=== PATIENT | male | born 1970 | race Two or more races ===

== ENCOUNTER 2019-02-07 11:16 | Emergency (ER) | payer MEDICAID, OTHER ==
[~2019-02-07] VITALS: Ht 170.2 cm; Wt 81.0 kg
[2019-02-07 11:33] VITALS: BP 129/92
[2019-02-07] MEDS ORDERED: FLUORESCEIN SODIUM 1MG/STRIP OP ONE (12:30)
[2019-02-07] MEDS ORDERED: TETRACAINE 0.5% OPHTH DROPS 4ML OP ONE (12:30)
== END 2019-02-07 13:21 | disposition home or self-care (01) ==
LOC: ER 11:52
DX: T15.81XA Foreign body in other and multiple parts of external eye, right eye, initial encounter (principal); X58.XXXA Exposure to other specified factors, initial encounter; Y93.89 Activity, other specified; Y92.89 Other specified places as the place of occurrence of the external cause; Y99.0 Civilian activity done for income or pay
CPT/HCPCS: 99283

== ENCOUNTER 2021-11-15 13:08 | Emergency (ER) | payer MEDICAID ==
[~2021-11-15] VITALS: Ht 170.2 cm; Wt 73.0 kg
[2021-11-15 13:59] VITALS: BP 143/96
[2021-11-16] MEDS ORDERED: IBUP-2029 MT (11:16)
[2021-11-16] MEDS ORDERED: HYDR-4001 MT (11:16)
== END 2021-11-15 15:09 | disposition left against medical advice (07) ==
LOC: ER 14:11
DX: Z53.21 Procedure and treatment not carried out due to patient leaving prior to being seen by health care provider (principal)

== ENCOUNTER 2021-11-15 20:01 | Emergency (ER) | payer MEDICAID, OTHER ==
[2021-11-16] MEDS ORDERED: IBUP-2029 MT (11:16)
[2021-11-16] MEDS ORDERED: HYDR-4001 MT (11:16)
== END 2021-11-15 23:27 | disposition left against medical advice (07) ==
LOC: ER 20:01
DX: Z53.21 Procedure and treatment not carried out due to patient leaving prior to being seen by health care provider (principal)

== ENCOUNTER 2021-11-16 04:59 | Emergency (ER) | payer OTHER ==
[~2021-11-16] VITALS: Ht 170.2 cm; Wt 72.6 kg
[2021-11-16] MEDS ORDERED: KETOROLAC 60MG/2ML VIAL IM ONE (08:30)
[2021-11-16 09:09] LABS: BASOPHILS % 0.8 % (0.0-2.0); EOSINOPHILS % 3.8 % (0.0-5.0); HEMATOCRIT. 51.4 % (42.0-52.0); HEMOGLOBIN. 17.4 g/dL (14.0-18.0); LYMPHOCYTES % 28.8 % (20.0-50.0); MEAN CORPUSCULAR VOLUME 82.7 fL (80.0-94.0); MEAN PLATELET VOLUME 7.8 fl (7.4-10.4); MONOCYTES % 10.8 % (2.0-8.0); NEUTROPHILS % 55.8 % (40.0-76.0); PLATELET 252 x1000/uL (130-400); RED BLOOD CELL COUNT 6.21 mill/uL (4.7-6.1); RED CELL DISTRIBUTION WIDTH 14.1 % (11.6-14.6)
[2021-11-16 09:15] LABS: CHLORIDE 105 mEq/L (98-107)
[2021-11-16 09:17] LABS: CLARITY URINE CLEAR (CLEAR); COLOR URINE YELLOW (YELLOW); KETONES URINE NEGATIVE (NEGATIVE); LEUKOCYTE ESTERASE URINE NEGATIVE (NEGATIVE); NITRITE URINE NEGATIVE (NEGATIVE); OCCULT BLOOD URINE NEGATIVE (NEGATIVE); PROTEIN URINE NEGATIVE (NEGATIVE); SPECIFIC GRAVITY URINE 1.028 (1.005-1.030)
[2021-11-16] MEDS ORDERED: HYDR-4001 MT (11:16)
[2021-11-16] MEDS ORDERED: IBUP-2029 MT (11:16)
[2021-11-16 11:55] VITALS: BP 148/92
== END 2021-11-16 11:57 | disposition home or self-care (01) ==
LOC: ER 04:59
DX: M54.42 Lumbago with sciatica, left side (principal); E11.65 Type 2 diabetes mellitus with hyperglycemia; I10 Essential (primary) hypertension; M51.37 Other intervertebral disc degeneration, lumbosacral region; E86.0 Dehydration; G47.09 Other insomnia
CPT/HCPCS: 36415; 72100; 73502; 80053; 81003; 82962; 85025; 96372; 99284; J1885

== ENCOUNTER 2021-11-17 14:34 | Emergency (ER) | payer OTHER ==
[~2021-11-17] VITALS: Ht 170.2 cm; Wt 73.0 kg
[~2021-11-17 14:34] MED LIST: HYDR-4001 MT; IBUP-2029 MT
[2021-11-17 14:56] VITALS: BP 143/96
== END 2021-11-17 18:10 | disposition left against medical advice (07) ==
LOC: ER 14:34
DX: M79.605 Pain in left leg (principal); Z53.21 Procedure and treatment not carried out due to patient leaving prior to being seen by health care provider
CPT/HCPCS: 99281

== ENCOUNTER 2023-02-03 04:14 | Emergency (ER) | payer OTHER ==
[~2023-02-03] VITALS: Ht 175.3 cm; Wt 73.0 kg
[2023-02-03 04:16] VITALS: O2SAT 96
[2023-02-03] MEDS ORDERED: ASPIRIN 325MG TABLET PO ONE (05:45)
[2023-02-03] MEDS ORDERED: LORAZEPAM 0.5MG TABLET PO ONE (06:15)
[2023-02-03 06:33] LABS: PARTIAL THROMBOPLASTIN TIME 25.3 sec (23.4-31.0); PROTHROMBIN TIME 11.2 sec (9.6-11.0)
[2023-02-03 06:35] LABS: BASOPHILS % 0.4 % (0.0-2.0); EOSINOPHILS % 2.2 % (0.0-5.0); HEMATOCRIT. 50.7 % (42.0-52.0); HEMOGLOBIN. 16.1 g/dL (14.0-18.0); LYMPHOCYTES % 20.3 % (20.0-50.0); MEAN CORPUSCULAR HEMOGLOBIN 27.9 pg (28.0-32.0); MEAN CORPUSCULAR HGB CONC 31.7 g/dL (31.0-37.0); MEAN PLATELET VOLUME 9.1 fl (7.4-10.4); MONOCYTES % 8.3 % (2.0-8.0); NEUTROPHILS % 68.8 % (40.0-76.0); PLATELET 223 x1000/uL (130-400); RED BLOOD CELL COUNT 5.76 mill/uL (4.7-6.1); RED CELL DISTRIBUTION WIDTH 16.3 % (11.6-14.6); WHITE BLOOD COUNT 11.2 x1000/uL (4.5-11.0)
[2023-02-03 06:42] LABS: CHLORIDE 105 mEq/L (98-107); INDEX HEMOLYSI 2 (1-3); INDEX ICTERIC 1 (1-4); INDEX LIPEMIC 1 (1-3); SODIUM 136 mEq/L (136-145)
[2023-02-03 06:52] LABS: ALANINE AMINOTRANSFERASE 67 IU/L (13-61); ALBUMIN 3.4 g/dL (3.4-5.0); ASPARTATE AMINOTRANSFERASE 107 IU/L (15-37); BILIRUBIN TOTAL 0.6 mg/dL (0.1-1.0); CALCIUM 8.8 mg/dL (8.5-10.1); CARBON DIOXIDE 23 mEq/L (21-32); CREATININE 1.4 mg/dL (0.6-1.3); GLUCOSE 124 mg/dL (70-105); NT PRO B-TYPE NATRIURETIC PEP 2703 pg/mL (5-125); PROTEIN TOTAL 7.1 g/dL (6.0-8.3); UREA NITROGEN BLOOD 27 mg/dL (7-21)
[2023-02-03 06:57] LABS: TROPONIN I HIGH SENSITIVITY 3972 ng/L (<78)
[2023-02-03] MEDS ORDERED: ONDANSETRON HCL 4MG/2ML INJ IV ONE (08:00)
[2023-02-03] MEDS ORDERED: MORPHINE SULFATE 4 MG/ML CPJ (NOT FOR IM USE) IV NR (09:15)
[2023-02-03] MEDS ORDERED: ENOXAPARIN 80MG/0.8ML SYR SUBCUT SCH (10:00)
[2023-02-03] MEDS ORDERED: MORPHINE SULFATE 4 MG/ML CPJ (NOT FOR IM USE) IV ONE (11:00)
[2023-02-03] MEDS ORDERED: LORAZEPAM 2MG/ML CPJ IV NR (11:15)
[2023-02-03 11:20] VITALS: PULSE 181; RESP 28
[2023-02-03] MEDS ORDERED: PROPOFOL 10MG/ML 100ML 100 ML IV SCH (11:45)
[2023-02-03] MEDS ORDERED: NOREPINEPHRINE 8 MG in DEXT 5% WATER 242 ML IV STA (12:18)
[2023-02-03] MEDS ORDERED: NOREPINEPHRINE 8MG/250ML PMX 250 ML IV PRN (12:30)
[2023-02-03 13:00] VITALS: PULSE 116; RESP 22
[2023-02-03] MEDS ORDERED: ONDANSETRON HCL 4MG/2ML INJ IV PRN (13:30)
[2023-02-03] MEDS ORDERED: PANTOPRAZOLE SODIUM 40 MG/VIAL IV SCH (13:30)
[2023-02-03 14:54] LABS: BG BASE EXCESS 1.5 mmol/L (-2.0-2.0); BG CARBOXYHEMOGLOBIN 0.7 % (0.5-1.5); BG DEOXYHEMOGLOBIN 2.7 % (0.0-5.0); BG FRACTION INSPIRED OXYGEN 100; BG HCO3 ACT 24.5 mmol/L (22.0-26.0); BG METHEMOGLOBIN 0.2 % (0.0-1.5); BG OXYGEN SATURATION 97.3 % (92.0-98.5); BG OXYHEMOGLOBIN 96.4 % (94.0-97.0); BG PCO2 34.3 mmHg (35.0-45.0); BG PH 7.472 (7.350-7.450); BG PO2 94.5 mmHg (75.0-100.0); BG SAMPLE SITE RIGHT RADIAL; BG TOTAL HEMOGLOBIN 16.1 g/dL (12.0-18.0); BG VENT MODE VENT - AC
[2023-02-03 15:00] VITALS: PULSE 111; RESP 22
[2023-02-03] MEDS ORDERED: DOBUTAMINE 250MG PREMIX 250 ML IV ONE (15:45)
[2023-02-03] MEDS ORDERED: DOPAMINE 400MG/250ML PREMIX 250 ML IV PRN (16:00)
[2023-02-03] MEDS ORDERED: NOREPINEPHRINE 32 MG in DEXT 5% WATER 218 ML IV PRN (16:00)
[2023-02-03] MEDS ORDERED: TENECTEPLASE 50MG/VIAL (FOR MI OR PE) IV NR (16:00)
[2023-02-03] MEDS ORDERED: DOBUTAMINE 250MG PREMIX 250 ML IV NR (16:00)
[2023-02-03] MEDS ORDERED: DOBUTAMINE 250MG PREMIX 250 ML IV PRN (16:15)
[2023-02-03 17:00] VITALS: PULSE 112; RESP 22
[2023-02-03 17:36] LABS: TROPONIN I HIGH SENSITIVITY 6059 ng/L (<78)
[2023-02-03] MEDS ORDERED: IPRATROPIUM/ALBUTEROL 0.5-3(2.5)MG/3ML NEB HHN SCH (18:00)
[2023-02-03 18:15] LABS: BG BASE EXCESS -10.4 mmol/L (-2.0-2.0); BG CARBOXYHEMOGLOBIN 0.1 % (0.5-1.5); BG DEOXYHEMOGLOBIN 10.5 % (0.0-5.0); BG HCO3 ACT 14.6 mmol/L (22.0-26.0); BG METHEMOGLOBIN 0.1 % (0.0-1.5); BG OXYGEN SATURATION 89.5 % (92.0-98.5); BG OXYHEMOGLOBIN 89.3 % (94.0-97.0); BG PCO2 30.3 mmHg (35.0-45.0); BG PO2 65.2 mmHg (75.0-100.0); BG SAMPLE SITE RIGHT BRACHIAL; BG VENT MODE VENT - AC
[2023-02-03] MEDS ORDERED: FUROSEMIDE 40MG/4ML VIAL IVP NR (19:10)
[2023-02-03] MEDS ORDERED: DEXTROSE 50% WATER 50ML SYRINGE IV PRN (19:15)
[2023-02-03 19:40] VITALS: BP 91/65; PULSE 20; RESP 22; TEMP 97.3
[2023-02-03] MEDS ORDERED: BLOOD SUGAR DIAGNOSTIC STRIP TEST SCH (21:00)
[2023-02-03] MEDS ORDERED: INSULIN LISPRO 100 UNITS/ML SUBCUT SCH (21:00)
== END 2023-02-03 22:50 ==
LOC: ER 04:19 → EDBEDREQ 08:11 → EDBEDREQSVC 08:11 → EDBEDREQTM 08:11 → EDBEDREQSVC 12:24 → ER 22:50 → CANBEDREQ 02-05 21:49
DX: I46.9 Cardiac arrest, cause unspecified (principal); R57.0 Cardiogenic shock; I10 Essential (primary) hypertension; E78.5 Hyperlipidemia, unspecified; I25.2 Old myocardial infarction; I21.4 Non-ST elevation (NSTEMI) myocardial infarction; E11.9 Type 2 diabetes mellitus without complications
CPT/HCPCS: 80053; 82962; 83880; 85025; 85610; 85730; 84484; 36415; 71045; 82805; 82375; 31500 ×2; 94002; 93005; 36556; 92950; 96372; 96374; 96375; 96376; 99291; 99292; 36600; J2997; J1250; J1650; J3490; J2405; C9113; J2704; J2270; Z7610 ×7; J7060; A4315